=== PATIENT | male | born 1965 | race Two or more races ===

== ENCOUNTER 2016-04-18 17:27 | Emergency (ER) | payer SELFPAY ==
[~2016-04-18] VITALS: Ht 162.6 cm; Wt 68.0 kg
[2016-04-18 18:41] VITALS: BP 128/74
== END 2016-04-18 18:44 | disposition home or self-care (01) ==
LOC: ER 17:28
DX: F10.129 Alcohol abuse with intoxication, unspecified (principal)
CPT/HCPCS: 99283; A4606; Z7610